=== PATIENT | male | born 2000 | race Caucasian/White ===

== ENCOUNTER 2019-08-19 18:44 | Day surgery (SDC) | payer OTHER ==
[~2019-08-19 18:44] MED LIST: Dexamethasone 20 MG/5 ML VIAL ONE; Glycopyrrolate 0.2 MG/ML 5 ML SYRINGE ONE; Lidocaine 1% PF 5 ML VIAL ONE; Ondansetron PF 4 MG/2 ML Vial ONE; PROPOFOL 200 MG/20 ML VIAL ONE; Rocuronium Bromide 10 MG/ML (10ML VIAL) ONE; ePHEDrine 50 MG/ML VIAL ONE
[2019-08-19] MEDS ORDERED: HYDROmorphone 0.5 MG/0.5 ML SYRINGE ONE (20:06)
[2019-08-19] MEDS ORDERED: Fentanyl 100 MCG/2 ML VIAL ONE (20:06)
[2019-08-19] MEDS ORDERED: Midazolam HCl 2 mg/2 ml Vial ONE (20:06)
[2019-08-19] MEDS ORDERED: Promethazine HCl 25 MG/ML VIAL ONE (20:14)
--- NOTE | 2019-08-20 01:45 | HP ---
HISTORY OF PRESENT ILLNESS: Gregory Vicente is a 18-year-old male [employer] student who presents with a 14 hour history of lower abdominal pain. Prior to that, URI type symptoms. He presented to the emergency room at [facility] and found to have on CAT scan changes consistent with appendicitis as suspected by clinical exam. ALLERGIES: NONE. TOBACCO: None. ALCOHOL: None. MEDICATIONS: None. PAST SURGICAL HISTORY: Noncontributory. REVIEW OF SYSTEMS: Ten-point noncontributory. PHYSICAL EXAMINATION: VITAL SIGNS: Weight 175 pounds or 79 kg, height 180 cm or 71 inches tall. BMI 24, blood pressure 160/83, temperature 97.6 degrees, 98 heart rate, and respiratory rate 16. HEENT: Unremarkable. LUNGS: Clear to auscultation. CARDIAC: Regular rate and rhythm without murmur or gallop. ABDOMEN: Soft, nontender except in the right upper quadrant where he has guarding and rebound. EXTREMITIES: Unremarkable. ASSESSMENT: Acute appendicitis. Recommend laparoscopic video appendectomy. Risks of infection, bleeding, visceral injury, open procedure discussed. He consents. He had laboratories at [facility], which were not repeated. His white count was 17, hemoglobin 16, basic metabolic profile normal. Urinalysis unremarkable. Job ID: [id number]
--- NOTE | 2019-08-20 01:47 | OP ---
DATE OF PROCEDURE: 08/19/2019 PREOPERATIVE DIAGNOSIS: Acute appendicitis. POSTOPERATIVE DIAGNOSIS: Acute appendicitis. PROCEDURE PERFORMED: Laparoscopic video appendectomy. ANESTHESIA: General, local 0.5% Marcaine with epinephrine, 30 mL total volume used. DESCRIPTION OF PROCEDURE: The patient was taken to the operating room, where under general anesthesia, the abdomen was clipped of hair, prepared with ChloraPrep and draped in routine fashion. Mckenna catheter placed at the beginning of the procedure and removed at the end. Infraumbilical incision made, pneumoperitoneum to 15 mmHg was obtained with a Veress needle, replaced with a 5 port and laparoscope inserted. Right lateral subcostal incision made and a 5 port placed. Suprapubic incision was made and a 12 port placed. Appendix was noted to be acutely inflamed and the mesoappendix taken down with the LigaSure. The stump of the appendix divided with Endo-CHARLETTE blue load stapler. Stapled cecal stump. Hemostasis gained with clips. Area irrigated. Good hemostasis noted. Appendix removed and submitted to Pathology. Irrigant and pneumoperitoneum evacuated. All instruments were removed and suprapubic fascia was approximated with 0 Vicryl. All skin incisions were approximated with a subdermal 4-0 Monocryl and Blue Ball glue applied. Job ID: [id number]
== END 2019-08-19 21:10 | disposition home or self-care (01) ==
LOC: SDC 18:44
PROVIDERS: ATTEND Specialist
PROC: 0DTJ4ZZ Resection of Appendix, Percutaneous Endoscopic Approach (ICD-10-PCS; principal; 2019-08-19)
DX: K35.80 Unspecified acute appendicitis (principal)
CPT/HCPCS: 88304; J1100; J1170; J2001; J2250; J2405; J2550; J2704; J3010; J3490